=== PATIENT | female | born 1970 | race Caucasian/White ===

== ENCOUNTER 2020-03-01 07:25 | Outpatient (CLI) | payer BC, SELFPAY ==
--- NOTE | 2020-03-01 07:49 | ECHO_ITS ---
Patient Info Name: Leta Mckeon Age: 49 years : 1970 Gender: Female Ht: 62 in Wt: 180 lbs BSA: 1.92 m2 HR: 60 bpm BP: 134 / 90 mmHg Heart Rhythm: Sinus Rhythm Technical Quality: Good Exam Date: 03/01/2020 7:54 AM Exam Location: [facility] Pulmonary Patient Status: Outpatient Admit Date: 03/01/2020 Staff Ordering Physician: Jenni Cote Nursery Technician: Tre Esquivel RDCS Attending Provider: Jenni Cote Referring Physician: Kera LANDEROS; Exam Type: CA echo doppler color flow Study Info Indications R06.02 - Shortness of breath Complete two-dimensional, color flow and Doppler transthoracic echocardiogram is performed. History/Risk Factors Shortness of breath, HTN. Summary 1. Left ventricular chamber dimension is normal. 2. Left ventricular systolic function is normal, estimated at 65-70%. 3. The left ventricular diastolic function is grade I diastolic dysfunction. 4. E/e' 9 is minimally elevated. 5. Left atrial chamber dimension is mildly enlarged. 6. There is mild mitral valve regurgitation. 7. There is mild tricuspid valve regurgitation. Left Ventricle E/e' 9 is minimally elevated. Left ventricular chamber dimension is normal. Left ventricular systolic function is normal, estimated at 65-70%. The left ventricular diastolic function is grade I diastolic dysfunction. Right Ventricle Right ventricular chamber dimension is normal. Right ventricular systolic function is normal. Left Atria Left atrial chamber dimension is mildly enlarged. Right Atria Right atrial chamber dimension is normal. Aortic Valve The aortic valve is trileaflet. There is no aortic valve stenosis. There is no aortic valve regurgitation. Pulmonic Valve There is no pulmonic regurgitation. Mitral Valve There is no mitral valve stenosis. There is mild mitral valve regurgitation. Tricuspid Valve There is mild tricuspid valve regurgitation. RVSP is not calculated due to an inadequate TR jet. Pericardium/Pleural There is no pericardial effusion. Inferior Vena Cava Normal inferior vena cava with >50% collapse upon inspiration consistent with normal right atrial pressure, 5 mmHg. Aorta The aortic root size at the sinus of Valsalva is normal. Left Ventricular Outflow Tract Name Value Normal LVOT 2D LVOT Diameter 2.0 cm LVOT Doppler LVOT Peak Gradient 4 mmHg LVOT Mean Gradient 2 mmHg LVOT VTI 24 cm LVOT VTI/AV VTI Ratio 0.9 LVOT Stroke Volume 74 ml LVOT CO 4.4 l/min LVOT CI 2.3 l/min/m2 Mitral Valve Name Value Normal MV Doppler MV [place]el [place] 408 cm/s2 MV PHT
== END 2020-03-01 07:26 | disposition home or self-care (01) ==
PROVIDERS: PCP Internal Medicine; Visit Provider Nurse Practitioner
DX: R06.02 Shortness of breath (principal)
CPT/HCPCS: 93306

== ENCOUNTER → 2020-04-18 16:36 | Outpatient (CLI) | payer BC, SELFPAY ==
--- NOTE | ~2020-04-18 | MM_ITS ---
EXAMINATION: MM screening antoni BI w lucy HISTORY: Screening TECHNIQUE: Craniocaudal and mediolateral oblique 3-D tomosynthesis images were obtained and synthetic 2-D images were generated. CAD analysis was submitted and interpreted. COMPARISON: Comparison to multiple prior studies sequentially, with oldest reviewed study dated 03/22. BREAST PARENCHYMAL COMPOSITION: The breasts are heterogeneously dense, which may obscure small masses . FINDINGS: There is no evidence of suspicious mass, calcification, or architectural distortion to sugg est malignancy in either breast. There has been no suspicious interval change. IMPRESSION: 1. No mammographic evidence of malignancy. 2. Recommend routine screening mammography in one year. BI-RADS Category 1: Negative Reviewed, dictated and finalized at location A.
== END ==
PROVIDERS: PCP Internal Medicine; Visit Provider Nurse Practitioner
DX: Z12.31 Encounter for screening mammogram for malignant neoplasm of breast (principal)
CPT/HCPCS: 77063; 77067

== ENCOUNTER → 2020-07-23 15:48 | Outpatient (CLI) | payer BC, SELFPAY ==
--- NOTE | ~2020-07-23 | XR_ITS ---
EXAMINATION: XR hip BI 2V w AP pelvis DATE: 07/23/2020 16:03 INDICATION: Bilateral hip pain TECHNIQUE: Anteroposterior view of the pelvis and anteroposterior and frog leg lateral views of the l eft hip and anteroposterior and frog leg lateral views of the right hip and were obtained. COMPARISON: None. FINDINGS: Alignment is normal. No fracture or suggested avascular necrosis. Bilateral hip and sacroiliac joint spaces are normal. IMPRESSION: 1. Negative bilateral hip and pelvis radiographs. Reviewed, dictated and finalized at location A. S ARCHITECT
== END ==
PROVIDERS: PCP Internal Medicine; Visit Provider Internal Medicine
DX: M25.559 Pain in unspecified hip (principal); G89.29 Other chronic pain
CPT/HCPCS: 73521

== ENCOUNTER 2020-08-14 10:06 | Outpatient (CLI) | payer BC, SELFPAY ==
--- NOTE | ~2020-08-14 | MR_ITS ---
EXAMINATION: MR hip RT wo con DATE: 08/14/2020 11:23 INDICATION: Right hip pain. TECHNIQUE: Magnetic resonance imaging (MRI) of the right hip was performed without intravenous contra st. Sequences included axial and coronal PD-weighted FS FSE and axial T1-weighted FSE of the pelvis. Sequences of the hip included coronal T2-weighted FSE, 2D FIESTA, T1-weighted fast GRE, and axial, co domingo, and sagittal PD-weighted FS FSE. COMPARISON: Pelvis and right hip radiographs 07/23/2020 FINDINGS: Bones/cartilage: There is 4 degrees levocurvature of lumbar spine. No fracture. The femoral head/neck junctions are no rmal. The bone marrow signal intensity is normal. The right hip joint cartilage is normal. Labrum: The right acetabular labrum is normal. Fluid: There is no hip joint effusion. There is mild bilateral trochanteric bursitis. Soft tissues: The iliopsoas tendons and hamstring origins are normal. There is mild right gluteus minimus and glute us medius tendinopathy on small [id number] images. The left gluteus minimus and gluteus medius ten dons are normal. IMPRESSION: 1. Normal right hip joint. 2. Mild right gluteus minimus and gluteus medius tendinopathy. 3. Mild bilateral trochanteric bursitis. Reviewed, dictated and finalized at location A. ING MILL PLUGGER
== END 2020-08-14 10:07 | disposition home or self-care (01) ==
PROVIDERS: PCP Internal Medicine; Visit Provider Internal Medicine
DX: M70.62 Trochanteric bursitis, left hip (principal); M70.61 Trochanteric bursitis, right hip
CPT/HCPCS: 73721

== ENCOUNTER → 2021-06-11 14:29 | Outpatient (CLI) | payer BC, SELFPAY ==
--- NOTE | ~2021-06-11 | MM_ITS ---
EXAMINATION: MM screening antoin BI w lucy HISTORY: Screening mammogram TECHNIQUE: Craniocaudal and mediolateral oblique 3-D tomosynthesis images were obtained and synthetic 2-D images were generated. CAD analysis was submitted and interpreted. COMPARISON: 04/2020 screening mammogram examinations 04/28/2019 bilateral diagnostic digital mammogram 04/10/2019, 03/22/2019 bilateral screening mammogram examinations BREAST PARENCHYMAL COMPOSITION: There are scattered areas of fibroglandular density. FINDINGS: A 2.7 x 8 mm circumscribed opacity in the outer mid to lower right breast with halo sign, l ikely a benign cyst There is no evidence of suspicious mass, calcification, or architectural distorti on to suggest malignancy in either breast. There has been no suspicious interval change. IMPRESSION: 1. No mammographic evidence of malignancy. 2. Recommend routine screening mammography in one year. BI-RADS Category 2: Benign finding(s). Reviewed, dictated and finalized at location A. OLOGICAL ENGINEER
== END ==
PROVIDERS: PCP Internal Medicine; Visit Provider Nurse Practitioner
DX: Z12.31 Encounter for screening mammogram for malignant neoplasm of breast (principal)
CPT/HCPCS: 77063; 77067

== ENCOUNTER 2021-12-29 09:11 | Outpatient (CLI) | payer BC, SELFPAY ==
--- NOTE | ~2021-12-29 | XR_ITS ---
EXAMINATION: XR shoulder LT min 2V INDICATION: Left shoulder pain TECHNIQUE: Four views of the left shoulder are submitted. COMPARISON: None FINDINGS: Normal alignment. No fracture. Glenohumeral and acromioclavicular joint spaces are normal. Soft tissues are unremarkable. IMPRESSION: 1. No acute osseous abnormality. Reviewed, dictated and finalized at location A.
== END 2021-12-29 09:12 | disposition home or self-care (01) ==
PROVIDERS: PCP Internal Medicine; Visit Provider Internal Medicine
DX: M25.519 Pain in unspecified shoulder (principal)
CPT/HCPCS: 73030

== ENCOUNTER 2022-03-30 15:30 | Outpatient (RCR) | payer BC, SELFPAY ==
[2022-02-02 12:33] VITALS: BP_SYST 170
--- NOTE | 2022-02-02 13:26 | PTOPEVAL ---
PHYSICAL THERAPY INITIAL EVALUATION. Thank you for referring Leta Mckeon to [facility].? The patient is scheduled to be seen for therapy? 1x/week for 4 weeks. Please review, sign, date and return this plan of care BREANA. I agree with and certify that the following plan of care is medically necessary. Referring Physician Date Attending Provider: Justice Montero DO *PT Outpatient Evaluation Start: 02/02/22 Evaluation Information Diagnosis L shoulder pain Onset ~1 month Subjective Information Pt states she was running when Query Text:As Reported By Patient/ she fell and landed on her L Family shoulder. Pt states she has mild pain with any motion, and then if she uses her arm a lot one day it will throb all night. She report pain at the cap of the deltoid. She states she thinks reached out with both arm to catch her fall when she landed. 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 Dominance Right Pain Assessment Left Shoulder(s) Reported Pain Level 0 Pain Description Throbbing Pain Radiation Left Arm Pain Frequency Acute,Intermittent Lowest Pain Intensity 0 Greatest Pain Intensity 8 Pain Aggravating Factors Exercise/Activity,Lifting Upper Extremity Range of Motion Scapular/ Shoulder Range of Motion Left Shoulder Flexion - Active 138 Shoulder Flexion - Passive 155 Shoulder Abduction - Active 135 Shoulder Abduction - Passive 170 Shoulder Medial Rotation - Active T1 Shoulder Lateral Rotation - Active T2 Scapular/Shoulder Range of Motion R shoulder active flexion 145 Comments R shoulder active abduction 170 R shoulder functional int/ext rot T12, T2 Upper Extremity Muscle Strength Testing Scapular/Shoulder Left Scapular Retraction - Rhomboid 4 Good Shoulder Flexion Strength 4 Good Shoulder Abduction Strength 4 Good Shoulder Medial Rotation Strength 4+ Good + Shoulder Lateral Rotation Strength 4+ Good + Shoulder Strength Comments R shoulder motion grossly 4+ to 5/5 Posture Shoulder Posture (L) Rounded,(R) Rounded Scapula Posture (L) Neutral,(R) Neutral Palpation Assessment Palpation pt report rolling sensations during active motion, distal to greater tubercle of humerus , anterior GH joint line. Equal scapular movement during
[2022-03-02 15:29] VITALS: BP_SYST 170
--- NOTE | 2022-03-02 16:27 | PTOPEVAL ---
PHYSICAL THERAPY PROGRESS REPORT. Thank you for referring Leta Mckeon to [facility].? The patient is scheduled to be seen for therapy?1x/week for 4 weeks. Please review, sign, date and return this plan of care BREANA. I agree with and certify that the following plan of care is medically necessary. Referring Physician Date Attending Provider: Justice Montero DO *PT Outpatient Evaluation Start: 02/02/22 Evaluation Information Diagnosis L shoulder pain Onset ~1 month Subjective Information Pt states her shoulder is Query Text:As Reported By Patient/ doing better but not great. Family She states she still struggles lifting things overhead. Pt states she has not woken up with her shoulder throbbing in the last couple of weeks. Pain Assessment Left Shoulder(s) Reported Pain Level 0 Greatest Pain Intensity 3 Upper Extremity Range of Motion Scapular/ Shoulder Range of Motion Left Shoulder Flexion - Active 142 Shoulder Flexion - Passive 155 Shoulder Abduction - Active 165 Shoulder Abduction - Passive 170 Shoulder Medial Rotation - Active T12 Shoulder Lateral Rotation - Active T2 Scapular/Shoulder Range of Motion R shoulder active flexion 145 Comments R shoulder active [id number] R shoulder functional int/ext rot T12, T2 Upper Extremity Muscle Strength Testing Scapular/Shoulder Left Scapular Retraction - Rhomboid 4+ Good + Shoulder Flexion Strength 4+ Good + Shoulder Abduction Strength 4 Good Shoulder Medial Rotation Strength 4+ Good + Shoulder Lateral Rotation Strength 4+ Good + Shoulder Strength Comments R shoulder motion grossly 4+ to 5/5 about 80% of uninvolved side Palpation Assessment Palpation pt report mild tenderness along anterior head of biceps. Equal scapular movement during active shoulder flexion Special Tests-Upper Extremity Shoulder Special Tests Empty Can (supraspinatus) Test Negative Right,Positive Left Drop Arm Test Negative Left,Negative Right Speed's Test Negative Right,Positive Left Hawkin's Josse Test Negative Left,Negative Right Shoulder Special Tests Comments Pt demonstrates visible pain with L empty can test Safety Assessment Factors Affecting Safety No Concerns PT Clinical Summary Leta presents to therapy today for her progress report following 4 visits
[2022-03-30 15:30] VITALS: BP_SYST 0
--- NOTE | 2022-03-30 15:52 | PTOPDC ---
Assessment and note entered by Ely Gomez, PT, DPT Evaluation Information Assessment Status Discharge Diagnosis L shoulder pain Subjective Information Pt states her shoulder is feeling much, she reports improved motion with less catching sensations. Pt states she was able to lift her 6 month old grandson overhead and play with him. Reported Pain Level Pain Score 0: Self Report Assessment PT Clinical Summary Leta presents to therapy today following 7 visits of skilled therapy and participation in a HEP to treat her diagnosis of L shoulder pain. Today she demonstrates equal ROM and strength compared to her R shoulder. She demonstrates no substitutions during functional movements. She reports good compliance with her HEP and has met all of her therapy goals. She will be discharged from skilled therapy services at this time with instruction to follow up with her referring provider if needed. Plan of Care PT Services Indicated No Treatment Frequency and to be d/c'ed Duration
== END 2022-04-09 08:26 | disposition home or self-care (01) ==
LOC: ANHGOSHPT 15:30
PROVIDERS: PCP Internal Medicine; Visit Provider Internal Medicine
DX: M25.519 Pain in unspecified shoulder (principal)
CPT/HCPCS: 97110; 97112; 97140; 97161

== ENCOUNTER → 2022-06-25 09:39 | Outpatient (CLI) | payer BC, SELFPAY ==
--- NOTE | ~2022-06-25 | XR_ITS ---
Left Hand Technique: PA, oblique, and lateral views were obtained. Clinical History: Pain Findings: No acute fracture or dislocation is seen. 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 Remaining joint spaces are preserved. Soft tissues are unremarkable. Impression: No acute abnormality. 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 Reviewed, dictated and finalized at location [] ESY TEACHER Impression: No acute abnormality. 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
--- NOTE | ~2022-06-25 | XR_ITS ---
Left thumb Technique: PA, oblique, and lateral views were obtained. Clinical History: Pain Findings: No acute fracture or dislocation is seen. 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 Soft tissues are unremarkable. Impression: No fracture or dislocation. 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 Reviewed, dictated and finalized at location [] ICAL DEBRIEFER Impression: No fracture or dislocation. 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
== END ==
PROVIDERS: PCP Family Medicine; Visit Provider Family Medicine
DX: M79.645 Pain in left finger(s) (principal)
CPT/HCPCS: 73130; 73140

== ENCOUNTER → 2022-06-26 12:58 | Outpatient (CLI) | payer BC, SELFPAY ==
--- NOTE | ~2022-06-26 | MM_ITS ---
EXAMINATION: MM screening antoni BI w lucy HISTORY: Screening TECHNIQUE: Craniocaudal and mediolateral oblique 3-D tomosynthesis images were obtained and synthetic 2-D images were generated. CAD analysis was submitted and interpreted. COMPARISON: Comparison to multiple prior studies sequentially, with oldest reviewed study dated 03/22. BREAST PARENCHYMAL COMPOSITION: There are scattered areas of fibroglandular density. FINDINGS: There is no evidence of suspicious mass, calcification, or architectural distortion to sugg est malignancy in either breast. There has been no suspicious interval change. IMPRESSION: 1. No mammographic evidence of malignancy. 2. Recommend routine screening mammography in one year. BI-RADS Category 1: Negative Reviewed, dictated and finalized at location B. ANALYSIS SUPERVISOR
== END ==
PROVIDERS: PCP Family Medicine; Visit Provider Nurse Practitioner
DX: Z12.31 Encounter for screening mammogram for malignant neoplasm of breast (principal)
CPT/HCPCS: 77063; 77067

== ENCOUNTER 2022-10-09 01:28 | Day surgery (SDC) | payer BC, SELFPAY ==
[2022-09-25 14:37] VITALS: BMI 34.8
[2022-10-09 07:44] VITALS: BP 150/79; PULSE 84; RESP 20; TEMP 36.4; O2SAT 100
--- NOTE | 2022-10-09 07:50 | WPDANESEPPF ---
Anes - Initial Pre Proc Eval Procedure: Operation Date: 10/09/22 08:30 Proposed Procedures p Screening Colonoscopy - Dayron Murray MD Date/Time: 10/09/22 07:50 Surgeon: Dayron Murray MD Pre Op Diagnosis: neoplasm screening, family hx colon polyps Patient Data Age: 52 Gender: F Height: 1.57 m Weight: 84.2 kg Last Vital Signs Temp 36.4 C 10/09/22 07:44 Pulse 84 10/09/22 07:44 Resp 20 10/09/22 07:44 BP 150/79 H 10/09/22 07:44 Pulse Ox 100 10/09/22 07:44 O2 Del Method Room Air 10/09/22 07:44 Home Medications Medication Instructions Recorded Confirmed Type amlodipine 10 mg tablet 10 mg PO DAILY #90 tabs 06/30/22 09/25/22 Rx piroxicam 10 mg capsule 10 mg PO DAILY #90 caps 08/03/22 09/25/22 Rx semaglutide 1 mg/dose (4 mg/3 mL) 1 mg (0.75 mL) subcut WEEKLY 3 08/28/22 09/25/22 Rx subcutaneous pen injector (Ozempic) months #9.75 mL alprazolam 0.25 mg tablet 0.25 mg PO BID PRN anxiety 09/25/22 09/25/22 History valacyclovir 1 gram tablet 2,000 mg PO DAILY PRN fever 09/25/22 09/25/22 History (Valtrex) blisters semaglutide 2 mg/dose (8 mg/3 mL) 2 mg (0.75 mL) subcut WEEKLY #3 mL 10/05/22 10/05/22 Rx subcutaneous pen injector (Ozempic) trazodone 50 mg tablet 50 mg PO QHS PRN insomnia #90 tabs 10/08/22 Rx Patient hx anesthesia problems: none Family hx anesthesia problems: none Results Review: All pre-operative results and documents have been reviewed as part of the pre-operative evaluation. [facility] Past Medical History Medical History Intermittent low back pain Screening for cardiovascular condition Screening for colon cancer Shortness of breath Family History Family History Mother Family history of thyroid disease Depression Hypertension Patient's mother is in good health Family history of arthritis Grandparent Family history of thyroid disease Family history of osteoporosis Depression Father Hypertension Patient's father is in good health Family history of arthritis Social History Social History Smoking packs per day: 0.5 Smoking cigarettes per day: 10.0 Years smoked: 15 Smoking pack-years: 7.50 Smoking status: Former smoker Tobacco type: cigarettes Second hand tobacco smoke exposure: No Alcohol intake: current Alcohol use details: rarely Substance use: never Substance use type: does not use Lack of Transportation: No Lack of Food: Never True Current Housing: I Have Housing Concerned About Future Housing: No Difficulty Paying Gas/Electric Bills: No Difficulty Paying for Meds: No Currently Unemployed: No Education: Master's Degree or Higher Difficulty w/ Childcare or Family Care: No Living arrangements: with family Occupation/Education: occupation Additional occupation/education comments: [employer] Gender identity (if verbalized by the patient): Female Spiritual care concerns: No Anes - Eval Final PreProcedure Day of Procedure 10/09/22 07:50 Patient weight: obese Heart: regular rate and rhythm Lungs: clear to auscultation Airway: Mallampati scale class II Neurological: alert and oriented Last oral intake: >/= 8 hours ASA classification: III Emergent: no Anesthetic plan: proceed Anesthesia type and monitoring: general GIVS and standard monitoring Results Review: All pre-operative results and documents have been reviewed as part of the pre-operative evaluation. Informed Consent: The patient's anesthetic plan and its attendant risks and benefits were discussed with the patient/family/POA. Questions were solicited and answers provided to the satisfaction of the patient/family/POA.
[2022-10-09] MEDS: LACTATED RINGERS 1,000 ML 150 ML IV CONT (07:52)
--- NOTE | 2022-10-09 08:15 | PM.HPGS ---
History of Present Illness History of Present Illness Consent: Risks, benefits, and alternatives have been discussed and questions answered. Patient agrees to proceed with procedure. Chief complaint: neoplasm screening, family hx colon polyps Narrative: Leta Mckeon is a 52 year old female here for screening colonoscopy, last one 2018 Review of Systems Constitutional: Constitutional: Denies headache(s) and Denies weakness Eyes: Eyes: Denies blurry vision ENT: Reports Normal hearing present, Denies headache(s) and Denies neck pain Cardiovascular: Cardiovascular: Denies chest pain and Denies dyspnea Respiratory: Respiratory: Denies dyspnea Gastrointestinal: Gastrointestinal: Reports no additional gastrointestinal complaints Genitourinary: Genitourinary: Denies dysuria Musculoskeletal: Musculoskeletal: Denies neck pain Integumentary/Breasts: Skin/Breast: Denies dry skin Neurologic: Reports Normal hearing present, Denies headache(s) and Denies weakness Psychiatric: Psychiatric: Denies anxiety Endocrine: Endocrine: Denies change in body appearance Hematologic/Lymphatic: Hematologic/Lymphatic: Denies easy bleeding Allergic/Immunologic: Allergic/Immunologic: Denies urticaria PMFSH Past Medical History Medical History Intermittent low back pain Screening for cardiovascular condition Screening for colon cancer Shortness of breath Family History Family History Mother Family history of thyroid disease Depression Hypertension Patient's mother is in good health Family history of arthritis Grandparent Family history of thyroid disease Family history of osteoporosis Depression Father Hypertension Patient's father is in good health Family history of arthritis Social History Social History Smoking packs per day: 0.5 Smoking cigarettes per day: 10.0 Years smoked: 15 Smoking pack-years: 7.50 Smoking status: Former smoker Tobacco type: cigarettes Second hand tobacco smoke exposure: No Alcohol intake: current Alcohol use details: rarely Substance use: never Substance use type: does not use Lack of Transportation: No Lack of Food: Never True Current Housing: I Have Housing Concerned About Future Housing: No Difficulty Paying Gas/Electric Bills: No Difficulty Paying for Meds: No Currently Unemployed: No Education: Master's Degree or Higher Difficulty w/ Childcare or Family Care: No Living arrangements: with family Occupation/Education: occupation 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 Gender identity (if verbalized by the patient): Female Spiritual care concerns: No Meds Home Medications and Allergies Home Medications Medication Instructions Recorded Confirmed Type amlodipine 10 mg tablet 10 mg PO DAILY #90 tabs 06/30/22 09/25/22 Rx piroxicam 10 mg capsule 10 mg PO DAILY #90 caps 08/03/22 09/25/22 Rx semaglutide 1 mg/dose (4 mg/3 mL) 1 mg (0.75 mL) subcut WEEKLY 3 08/28/22 09/25/22 Rx subcutaneous pen injector (Ozempic) months #9.75 mL alprazolam 0.25 mg tablet 0.25 mg PO BID PRN anxiety 09/25/22 09/25/22 History valacyclovir 1 gram tablet 2,000 mg PO DAILY PRN fever 09/25/22 09/25/22 History (Valtrex) blisters semaglutide 2 mg/dose (8 mg/3 mL) 2 mg (0.75 mL) subcut WEEKLY #3 mL 10/05/22 10/05/22 Rx subcutaneous pen injector (Ozempic) trazodone 50 mg tablet 50 mg PO QHS PRN insomnia #90 tabs 10/08/22 Rx Vital Signs Vital Signs - 24 hr 10/09/22 07:44 Temperature 97.6 F Pulse Rate 84 Respiratory Rate 20 Blood Pressure 150/79 H Pulse Oximetry 100 Oxygen Delivery Room Air Exam Const: General: comfortable and no acute distress HENMT: Face/Nose/Sinus: Normal nares present Eyes: General: appearance normal, both
[2022-10-09 08:39] VITALS: BP 107/61; PULSE 75; RESP 25; O2SAT 100
[2022-10-09 08:49] VITALS: BP 111/68; PULSE 74; RESP 19; O2SAT 100
[2022-10-09 08:59] VITALS: BP 133/82; PULSE 75; RESP 22; O2SAT 100
== END 2022-10-09 09:05 | disposition home or self-care (01) ==
PROVIDERS: PCP Family Medicine; Visit Provider Internal Medicine Gastroenterology
PROC: 0DJD8ZZ Inspection of Lower Intestinal Tract, Via Natural or Artificial Opening Endoscopic (ICD-10-PCS; CPT 45378; principal; 2022-10-09 08:30)
DX: Z12.11 Encounter for screening for malignant neoplasm of colon (principal); K64.8 Other hemorrhoids; Z83.71 Family history of colonic polyps; Z79.899 Other long term (current) drug therapy; Z87.891 Personal history of nicotine dependence; E66.9 Obesity, unspecified; Z68.34 Body mass index [BMI] 34.0-34.9, adult
CPT/HCPCS: 45378; J2704; J7120

== ENCOUNTER 2023-09-20 15:01 | Outpatient (CLI) | payer BC, SELFPAY ==
--- NOTE | ~2023-09-20 | MM_ITS ---
EXAMINATION: MM screening antoni BI w lucy HISTORY: Screening mammogram TECHNIQUE: Craniocaudal and mediolateral oblique 3-D tomosynthesis images were obtained and synthetic 2-D images were generated. CAD analysis was submitted and interpreted. COMPARISON: 06/26/2022, 06/11/2021 bilateral screening mammogram examinations BREAST PARENCHYMAL COMPOSITION: There are scattered areas of fibroglandular density. FINDINGS: . There is an approximately 6 mm low-density circumscribed mass at mid depth in the upper o uter left breast. Diagnostic left mammogram and left breast ultrasound examination are recommended. No suspicious mass, architectural distortion, malignant calcification, skin thickening or retraction or significant new or developing density of either breast is noted otherwise IMPRESSION: 1. 6 mm mass, upper outer left breast 2. Diagnostic left mammogram and left breast ultrasound examination are recommended BI-RADS Category 0: Incomplete: Needs additional imaging evaluation. Reviewed, dictated and finalized at location A. IMPRESSION: 1. 6 mm mass, upper outer left breast 2. Diagnostic left mammogram and left breast ultrasound examination are recomme nded BI-RADS Category 0: Incomplete: Needs additional imaging evaluation.
== END 2023-09-20 15:02 ==
LOC: MICIMG 15:02
PROVIDERS: PCP Nurse Practitioner Adult Health; Visit Provider Advanced Practice Midwife
DX: Z12.31 Encounter for screening mammogram for malignant neoplasm of breast (principal); R92.8 Other abnormal and inconclusive findings on diagnostic imaging of breast
CPT/HCPCS: 77063; 77067

== ENCOUNTER 2023-11-01 07:41 | Outpatient (CLI) | payer BC, SELFPAY ==
--- NOTE | ~2023-11-01 | MMUS_ITS ---
EXAMINATION: MM diagnostic antoni LT w lucy, US breast LT limited HISTORY: 6 mm mass or fluid in the upper outer left breast on 09/20/2023 screening mammogram TECHNIQUE: Additional 3-D tomosynthesis images of left breast were performed and synthetic 2-D images were generated. CAD analysis was submitted and interpreted. High resolution upper outer and lower-ou ter quadrant left breast ultrasound was performed. COMPARISON: 09/20/2023 bilateral screening mammogram FINDINGS: MAMMOGRAPHIC FINDINGS: Low-density circumscribed approximately 6.3 x 7.5 mm mass is noted in the middle third of the outer m id left breast (coned compression CC Tomosynthesis image 38/73). No suspicious mass or architectural distortion or malignant calcification, skin thickening or retract ion is detected.. ULTRASOUND: 12:00 5 cm from nipple: Parallel circumscribed 2.2 x 3.2 x 4.2 mm hypoechoic lesion without internal vascularity posterior shadowing, benign in appearance 12-1:00 3 cm from nipple: 5 x 8.3 x 7.5 mm circumscribed oval hypoechoic lesion without internal vasc ularity or posterior shadowing, benign in appearance 2:00 8 cm from nipple: 4 x 5 x 4 mm sonolucency with through transmission, no internal vascularity, l ikely a benign cyst No suspicious mass or shadowing is detected. IMPRESSION: 1. Benign findings 2. Routine annual mammographic screening is recommended BI-RADS Category 2: Benign finding(s). Reviewed, dictated and finalized at location A. IMPRESSION: 1. Benign findings 2. Routine annual mammographic screening is recommended BI-RADS Category 2: Benign finding(s).
== END 2023-11-01 07:42 ==
LOC: MICIMG 07:41
PROVIDERS: PCP Nurse Practitioner; Visit Provider Nurse Practitioner Adult Health
DX: R92.8 Other abnormal and inconclusive findings on diagnostic imaging of breast (principal)
CPT/HCPCS: 76642; 77061; 77065; G0279

== ENCOUNTER 2023-11-15 13:20 | Outpatient (CLI) | payer BC, SELFPAY ==
--- NOTE | ~2023-11-15 | DEXA_ITS ---
Bone Density Report Name: TOO CURRAN Age: 53 Sex: Female Ethnicity: White Date of : 1970 Indication: postmenopausal; screening for osteoporosis; hysterectomy; Referring Provider: REGLA, GENO Study: Bone densitometry was performed. Exam Date: November 15, 2023 Accession number: [id number] Bone Density: Region BMD T-score Z-score Classification AP Spine (L1-L4) 1.197 1.4 2.5 Normal Femoral Neck (Left) 0.955 1.0 2.0 Normal Total Hip (Left) 1.035 0.8 1.5 Normal Femoral Neck (Right) 0.874 0.2 1.3 Normal Total Hip (Right) 1.054 0.9 1.6 Normal Total Hip Mean 1.045 0.9 1.6 Normal World Health Organization criteria for BMD impression classify patients as: Normal (T-score at or above -1.0), Osteopenia (T-score between -1.0 and -2.5), or Osteoporosis (T-score at or below -2.5). 10-year Fracture Risk: FRAX not reported because: All T-scores for Spine Total, Hip Total, Femoral Neck at or above -1.0 Previous Exams: Region Exam Age BMD T-score BMD Change BMD Change Date g/cm2 vs Baseline vs Previous AP Spine(L1-L4) 11/15/2023 53 1.197 1.4 -0.037* -0.037* 03/22/2018 47 1.233 1.7 Total Hip(Left) 11/15/2023 53 1.035 0.8 0.024 0.024 03/22/2018 47 1.011 0.6 Total Hip(Right) 11/15/2023 53 1.054 0.9 0.032* 0.032* 03/22/2018 47 1.023 0.7 *Denotes significance at 95% confidence level, LSC for AP Spine = 0.022 g/cm2, LSC for Total Hip = 0.027 g/cm2 Clinical Information Provided by Patient: Has used the following medications: HRT (i.e. estrogen/hormone therapy), Vitamin D, Calcium Has the following medical conditions: Hysterectomy Patient maximum height was 62 Menopause Age: 39 No regular weight bearing exercise Drinks caffeinated beverages Onset of menses at age 10 Number of children 2 Impression: The patient has normal bone mass. The BMD for the AP Spine(L1-L4) decreased, changing by -0.037 since the last DXA exam. Discussion: BONE DENSITY IS ABOVE THE MINIMUM DESIRABLE LEVEL AT ALL SKELETAL SITES TESTED. This patient?s bone mineral density is above the minimum desirable level (T-score -1.0 or better) at all sites measured. The patient should follow a healthful lifestyle (good nutrition with adequate calcium and vitamin D, and appropriate weight-bearing exercise). Follow-Up: Consider repeating this study in 3 to 4 years to reassess this patient's status, or
== END 2023-11-15 13:21 ==
LOC: MICIMG 13:21
PROVIDERS: PCP Nurse Practitioner Adult Health; Visit Provider Nurse Practitioner Women's Health
DX: Z78.0 Asymptomatic menopausal state (principal)
CPT/HCPCS: 77080

== ENCOUNTER 2024-07-10 09:57 | Outpatient (CLI) | payer BC, SELFPAY ==
[2024-07-10 21:10] LABS: Alanine Aminotransferase 24 U/L (6-35); Albumin Level 4.3 g/dL (3.5-5.1); Alkaline Phosphatase 85 U/L (38-126); Anion Gap 2 mmol/L (4-12); Aspartate Amino Transferase 41 U/L (14-36); Bilirubin,Total 0.4 mg/dL (0.2-1.3); Blood Urea Nitrogen 19 mg/dL (7-17); Calcium 8.9 mg/dL (8.4-10.2); Carbon Dioxide 28 mmol/L (22-30); Chloride 105 mmol/L (98-107); Cholesterol 221 mg/dL (0-200); Estimated Glomerular Filt Rate > 60; Glucose 85 mg/dL (65-110); HDL Direct 59 mg/dL; Potassium 4.3 mmol/L (3.4-5.0); Sodium 135 mmol/L (137-145); Triglycerides 138 mg/dL (<150)
[2024-07-10 21:22] LABS: LDL Cholesterol Direct 112 mg/dL
== END 2024-07-10 09:58 | disposition home or self-care (01) ==
LOC: ANHBWCLAB 09:59
PROVIDERS: PCP Nurse Practitioner Adult Health; Visit Provider Nurse Practitioner Adult Health
DX: I10 Essential (primary) hypertension (principal)
CPT/HCPCS: 36415; 80053; 80061

== ENCOUNTER 2025-03-26 08:18 | Outpatient (CLI) | payer BC, SELFPAY ==
--- OUTSIDE RECORDS SUMMARY | 2025-03-26 08:49 | XMS_ITS | Clinical Summary ---
Author Organization [address] [place] [address] Care Team Providers Care Turning Machine Operator Helper Name Role Phone Justice Montero DO Primary Care Provider [phone] Allergies Active Allergy Reactions Criticality Noted Date Comments Cortisone Other (See Comments) 08/22/2020 Flushed in the face and hot Lisinopril Angioedema High 12/24/2020 Medications ALPRAZolam (XANAX) 0.25 mg tablet TAKE ONE TABLET BY MOUTH ONCE DAILY NEEDED FOR ANXIETY AND TWO AT BEDTIME FOR SLEEP 07/29/2020 Active valACYclovir (VALTREX) 1 gram tablet 07/29/2020 Active atenoloL (TENORMIN) 25 mg tablet Take 25 mg by mouth daily. 07/01/2020 Active estradioL (ESTRACE) 1 mg tablet TAKE 1 AND 1/2 TABLETS BY MOUTH EVERY DAY 08/14/2020 Active piroxicam (FELDENE) 10 mg Capsule 08/19/2020 Active hydroCHLOROthia zide 25 mg tablet Take 25 mg by mouth daily. 06/03/2020 Active cyclobenzaprine (FLEXERIL) 10 mg tablet Take 1 Tablet (10 mg) by mouth nightly as needed for Spasm. 30 Tablet 2 10/15/2020 Active lisinopriL (PRINIVIL) 20 mg tablet every 24 hours. Active Active Problems No known active problems Family History Medical History Relation Name Comments Arthritis-osteo Father Hypertension Father Prostate Cancer Father Arthritis-osteo Maternal Aunt Lymphoma Maternal Aunt Arthritis-osteo Mother Hypertension Mother Relation Name Status Comments Father Maternal Aunt Mother Social History Tobacco Use Types Packs/Day Years Used Date Smoking Tobacco: Never Smokeless Tobacco: Never Alcohol Use Standard Drinks/Week Comments Yes 0 (1 standard drink = 0.6 oz pur e alcohol) Comments Unknown Sex and Gender Information Value Date Recorded Sex Assigned at Not on file Legal Sex Female 5:14 PM CDT Gender Identity Not on file Sexual Orientation Not on file Last Filed Vital Signs Vital Sign Reading Time Taken Comments Blood Pressure 130/80 12/24/2020 1:15 PM CDT Pulse 66 08/22/2020 2:45 PM CONCRETE PRECAST MOULDER Temperature - - Respiratory Rate - - Oxygen Saturation - - Inhaled Oxygen Concentration - - Weight 81.2 kg (179 lb) 12/24/2020 1:15 PM CDT Height 157.5 cm (5' 2) 12/24/2020 1:15 PM CDT Body Mass Index 32.74 12/24/2020 1:15 PM CDT Plan of Treatment Health Maintenance Due Date Last Done Comments DTAP/TDAP/TD VACCINES (1 - Tdap) 1987 HEPATITIS B VACCINES (1 of 3 - 19+ 3-dose series) 1987 HPV/Cotest (21-29) 1989 HPV/Cotest (30-65) 1998 FIT-DNA Q 3 years 2013 FIT/FOBT Q 1 year 2013 Flex Sig/CT Colonography Q 5 years 2013 ZOSTER VACCINE (1 of 2) 2018 BREAST CANCER SCREENING 04/18/2021 04/18/20 20, 04/18/2020, 04/18/2019, Additional history exists CERVICAL CANCER SCREENING 03/10/2022 PAP SMEAR 03/10/2022 03/10/2019 INFLUENZA VACCINE (#1) 2025 5, 05/04/2014, 07/26/2013 COLORECTAL SCREENING 07/30/2027 07/30/2017 Colorectal Cancer Screening 07/30/2027 Care Teams Turning Machine Operator Helper Relationship Specialty Start Date End Date Justice Montero DO [address] [facility] [address] [place] [address] PCP - General Internal Medicine 08/15/20
[2025-03-26 18:45] LABS: Alanine Aminotransferase 22 U/L (6-35); Albumin Level 4.7 g/dL (3.5-5.1); Alkaline Phosphatase 82 U/L (38-126); Anion Gap 8 mmol/L (4-12); Aspartate Amino Transferase 49 U/L (14-36); Bilirubin,Total 0.3 mg/dL (0.2-1.3); Blood Urea Nitrogen 17 mg/dL (7-17); Calcium 9.4 mg/dL (8.4-10.2); Carbon Dioxide 25 mmol/L (22-30); Chloride 102 mmol/L (98-107); Cholesterol 225 mg/dL (0-200); Estimated Glomerular Filt Rate 50; Glucose 81 mg/dL (65-110); HDL Direct 56 mg/dL; Magnesium 2.4 mg/dL (1.6-2.3); Sodium 135 mmol/L (137-145); Total Protein 8.0 g/dL (6.3-8.2); Triglycerides 79 mg/dL (<150)
[2025-03-26 18:50] LABS: Hematocrit 42.9 % (37.0-47.0); Hemoglobin 13.1 g/dL (12.0-15.0); Immature Granulocyte Percent A 0.4 % (0-0.5); Lymphocytes Absolute Auto 1.99 K/mm3 (0.9-3.2); Mean Corpuscular HGB Conc 30.5 g/dl (32-36); Mean Corpuscular Hemoglobin 24.7 pg (26-34); Mean Corpuscular Volume 80.8 fl (80-100); Nucleated Red Blood Cells Absolute Auto 0.000 K/mm3 (0.0-0.012); Nucleated Red Blood Cells Perc 0.0 % (0.0-0.2); Platelet Count Result 356 k/mm3 (150-375); Red Blood Count 5.31 M/mm3 (4.2-5.4); White Blood Count 8.1 K/mm3 (4.5-10.0)
[2025-03-26 18:52] LABS: Potassium 4.4 mmol/L (3.4-5.0)
[2025-03-26 19:20] LABS: Thyroid Stimulating Hormone 2.600 uIU/mL (0.465-4.680)
[2025-03-30 21:07] LABS: Estrogens, Total 215 pg/mL (40-244)
== END 2025-03-26 08:19 | disposition home or self-care (01) ==
LOC: ANHBWCLAB 08:19
PROVIDERS: PCP Nurse Practitioner Adult Health; Visit Provider Nurse Practitioner Adult Health
DX: R61 Generalized hyperhidrosis (principal); I10 Essential (primary) hypertension; Z71.89 Other specified counseling; Z00.00 Encounter for general adult medical examination without abnormal findings
CPT/HCPCS: 36415; 80053; 80061; 82672; 83735; 84144; 84443; 85025

== ENCOUNTER 2025-03-28 15:51 | Outpatient (CLI) | payer BC, SELFPAY ==
--- OUTSIDE RECORDS SUMMARY | 2025-03-28 16:29 | XMS_ITS | Patient Health Record ---
Author Organization [facility] [place] Address [address] [place] [address] Care Team Providers Care Senior Oracle Adf Developer Name Role Phone Gerardo Suero Unavailable [phone] Allergies Allergen (clinical drug ingredient) Drug/Non Drug Allergy documented on EMR Reaction Allergy Type Onset Date Status cortisone Cortisone red & flushed face Drug Allergy Active Reason For Referral No Information Medications Medication SIG (Take, Route, Frequency, Duration) Notes Start Date End Date Status Estradiol 1 MG 1 tablet Orally Once a day Active Piroxicam 10 MG 1 capsule with food Orally Once a day Active hydroCHLOROthiazide 25 MG 1 tablet in th e morning Orally Once a day Active Cyclobenzaprine HCl 10 MG 1 tablet at be dtime as needed Orally Once a day Active Xanax 0.25 MG 1 tablet Orally Twic e a day Active Valtrex 1 GM 1 tablet Orally Once a day Active Atenolol 25 MG 1 tablet Orally Once a day Active Social History Tobacco Use: Social History Observation Description Date Details (start date - stop date) Never Smoker NA - NA Tobacco Use/Smoking Question Answer Notes Are you a nonsmoker Problems Problem Type SNOMED Code ICD Code Onset Dates Problem Status W/U Status Risk Notes Problem Lumbosacral spondylosis without myelopathy (03725841) Spondylosis without myelopathy or radiculopathy, lumbar region (M47.816) Active confirmed Problem Lumbosacral spondylosis without myelopathy (disorder) (63241020) Spondylosis without myelopathy or radiculopathy, lumbosacral region (M47.817) Active confirmed Problem Degenerative disc disease (81723318) DDD (degenerative disc disease), lumbar (M51.36) Active confirmed Plan Of Treatment No Information Medications Administered Medication Instructions Date of Administration Dosage Notes Right L3/4, L4/5 and L5/S1 F acet Joint Injections 12/02/2020 Medical (General) History Medical History History ICD Code High blood pressure headaches esophageal reflux depression anxiety Surgical History Surgery Date(Month/Year) section 1989 lumpectomy 1993 right carpal tunnel release 2003 hysterectomy 2009
--- OUTSIDE RECORDS SUMMARY | 2025-03-28 16:29 | XMS_ITS | Clinical Summary ---
Author Organization [address] [place] [address] Care Team Providers Care Software Development Leader Name Role Phone Justice Montero DO Primary Care Provider [phone] Allergies Active Allergy Reactions Criticality Noted Date [...] PM CDT Pulse 66 08/22/2020 2:45 PM ABAP DEVELOPER Temperature - - Respiratory Rate - - [...] 07/30/2017 Colorectal Cancer Screening 07/30/2027 Care Teams Software Development Leader Relationship Specialty Start Date End Date Justice Montero DO [address] [facility] [address] [place] [address] PCP - General Internal Medicine 08/15/20
[2025-03-28 18:39] LABS: Iron 44 ug/dL (37-170)
[2025-03-28 18:50] LABS: Percent Iron Saturation 12 % (20-50)
[2025-03-28 19:16] LABS: Ferritin 39.20 ng/mL (11.1-264)
[2025-03-28 19:34] LABS: Vitamin B12 841.0 pg/mL (239-931)
== END 2025-03-28 15:52 | disposition home or self-care (01) ==
LOC: ANHBWCLAB 15:52
PROVIDERS: PCP Nurse Practitioner Adult Health; Visit Provider Nurse Practitioner Adult Health
DX: R71.8 Other abnormality of red blood cells (principal)
CPT/HCPCS: 36415; 82607; 82728; 83540; 83550

== ENCOUNTER 2025-04-06 08:03 | Outpatient (CLI) | payer BC, SELFPAY ==
--- NOTE | ~2025-04-06 | MM_ITS ---
EXAMINATION: MM screening antoni BI w lucy HISTORY: Screening TECHNIQUE: Craniocaudal and mediolateral oblique 3-D tomosynthesis images were obtained and synthetic 2-D images were generated. CAD analysis was submitted and interpreted. COMPARISON: Comparison to multiple prior studies sequentially, with oldest reviewed study dated , 04/18/2020 BREAST PARENCHYMAL COMPOSITION: There are scattered areas of fibroglandular density. FINDINGS: There is no evidence of suspicious mass, calcification, or architectural distortion to suggest malignancy in either breast. IMPRESSION: 1. No mammographic evidence of malignancy. 2. Recommend routine screening mammography in one year. BI-RADS Category 1: Negative Reviewed, dictated and finalized at location B.
--- OUTSIDE RECORDS SUMMARY | 2025-04-06 08:07 | XMS_ITS | Patient Health Record ---
Author Organization [facility] [place] Address [address] [place] [address] Care Team Providers Care Assistant Cross Country Coach Name Role Phone Gerardo Suero Unavailable [phone] Allergies Allergen (clinical drug ingredient) Drug/Non Drug [...] Risk Notes Problem Lumbosacral spondylosis without myelopathy (82462669) Spondylosis without myelopathy or radiculopathy, lumbar region (M47.816) Active confirmed Problem Lumbosacral spondylosis without myelopathy (disorder) (01674454) Spondylosis without myelopathy or radiculopathy, lumbosacral region (M47.817) Active confirmed Problem Degenerative disc disease (04713940) DDD (degenerative disc disease), lumbar (M51.36) Active [...]
--- OUTSIDE RECORDS SUMMARY | 2025-04-06 08:07 | XMS_ITS | Clinical Summary ---
Author Organization [address] [place] [address] [place] [address] Care Team Providers Care Fisheries Technical Officer Name Role Phone Justice Montero DO Primary Care Provider [phone] Allergies Active Allergy Reactions Criticality Noted Date [...] PM CDT Pulse 66 08/22/2020 2:45 PM SMOKING PIPE MOUNTER Temperature - - Respiratory Rate - - [...] 07/30/2017 Colorectal Cancer Screening 07/30/2027 Care Teams Fisheries Technical Officer Relationship Specialty Start Date End Date Justice Montero DO [address] [facility] [address] [place] [address] PCP - General Internal Medicine 08/15/20
== END 2025-04-06 08:04 | disposition home or self-care (01) ==
LOC: CHSIMG 08:04
PROVIDERS: PCP Nurse Practitioner Adult Health; Visit Provider Nurse Practitioner
DX: Z12.31 Encounter for screening mammogram for malignant neoplasm of breast (principal)
CPT/HCPCS: 77063; 77067

== ENCOUNTER 2025-05-10 06:34 | Outpatient (CLI) | payer BC, SELFPAY | END 2025-05-10 06:35 | disposition home or self-care (01) | LOC: ANHBWCLAB 06:34 | PROVIDERS: PCP Nurse Practitioner Adult Health; Visit Provider Nurse Practitioner Adult Health | DX: K52.9 Noninfective gastroenteritis and colitis, unspecified (principal) | CPT/HCPCS: 87045; 87046; 87427 ==